=== PATIENT | female | born 1960 | race Caucasian/White ===

== ENCOUNTER 2022-08-04 20:46 | Inpatient (IN) | payer MEDICARE, OTHER ==
[2022-08-04] MEDS ORDERED: NITROGLYCERIN SL TABS 0.4 MG TAB SUBLINGUAL PRN ×2 (20:53→23:33)
[2022-08-04] MEDS ORDERED: MORPHINE SULFATE 4 MG/ML SYRINGE IV STA (21:00)
[2022-08-04] MEDS ORDERED: NOREPINEPHRINE 4 MG in SODIUM CHLORIDE 0.9% 250 ML IV SCH (21:00)
[2022-08-04] MEDS ORDERED: LORazepam 2 MG/ML INJ IV STA (21:00)
[2022-08-04 21:01] LABS: Glucose,Whole Blood 401 mg/dL (70-110)
[2022-08-04 21:06] VITALS: RESP 0
[2022-08-04 21:26] LABS: Potassium 4.2 mmol/L (3.5-5.1)
[2022-08-04 21:27] LABS: Calcium 8.2 mg/dL (8.4-10.2); HCT 38.9 % (34.0-46.0); HGB 12.1 gm/dL (11.4-16.0); Hypochromasia Slight; MCH 29.9 pg (25.0-35.0); MCHC 31.1 g/dL (31.0-37.0); MCV 96.3 fL (80.0-100.0); Magnesium 2.4 mg/dL (1.6-2.3); Mean Platelet Volume 8.8; Platelet Count 207 k/uL (150-450); RBC 4.04 m/uL (3.80-5.40); RDW 13.5 % (11.5-15.5); Total Bilirubin 0.2 mg/dL (0.2-1.3); Total Protein 5.3 g/dL (6.3-8.2); WBC 11.5 k/uL (3.8-10.6)
[2022-08-04 21:41] LABS: INR 0.9 (<1.2); Partial Thromboplastin Time 22.7 sec (22.0-30.0); Prothrombin Time 9.7 sec (9.0-12.0)
--- NOTE | 2022-08-04 21:42 | XR ---
EXAMINATION TYPE: XR chest 1V portable DATE OF EXAM: 08/04/2022 COMPARISON: NONE HISTORY: Respiratory failure TECHNIQUE: Single view FINDINGS: Heart is normal. Lungs are free of consolidation. There is no heart failure there are no hi lar masses. There are chest leads. There is endotracheal tube 9 mm from the juliann. There is nasogast kerwin tube in the stomach. IMPRESSION: No heart failure or pulmonary consolidation. There is 8mm density in the lateral right up per lobe that is likely scarring or granuloma.
--- NOTE | 2022-08-04 21:44 | XR ---
EXAMINATION TYPE: XR chest 1V portable DATE OF EXAM: 08/04/2022 COMPARISON: NONE HISTORY: Cardiac arrest TECHNIQUE: 2 views FINDINGS: There is nasogastric tube in the stomach there is an endotracheal tube that is approximatel y 4 cm from the juliann. Tip is not well seen. There is some mild interstitial infiltrate in the right lung. IMPRESSION: 1 right-sided pulmonary interstitial infiltrate. Tubing in good position. Normal heart si ze.
[2022-08-04 21:45] LABS: ABG Base Excess -13.8 mmol/L; ABG HCO3 17 mmol/L (21-25); ABG Oxygen Saturation 98.8 % (94-97); ABG PCO2 58 mmHg (35-45); ABG PO2 176 mmHg (83-108); ABG TCO2 18 mmol/L (19-24); Allen Test Performed? Yes
[2022-08-04 21:49] LABS: ABG PH 7.06 (7.35-7.45)
[2022-08-04] MEDS ORDERED: LIDOCAINE 1% INJ 10MG/ML (20 ML MDV) ONE (22:17)
[2022-08-04] MEDS ORDERED: VERAPAMIL 2.5 MG/ML 2 ML AMP ONE (22:17)
[2022-08-04] MEDS ORDERED: fentaNYL (PF) 50 MCG/ML 2 ML AMP ONE (22:28)
[2022-08-04] MEDS ORDERED: HEPARIN SODIUM 1,000 UN/ML (10ML VL) ONE (22:28)
[2022-08-04] MEDS ORDERED: ASPIRIN 325 MG TAB NG-TUBE ONE (22:30)
--- NOTE | 2022-08-04 22:30 | P.CRDCN ---
History of Present Illness Consult date: 08/04/22 History of present illness: History of Present Illness: The patient is a 62-year-old female who presented with a cardiac arrest. The history is obtained from the emergency room physician. Apparently the patient was not feeling well this afternoon complaining of neck pain, went to bed and apparently got up and collapse, CPR was initiated. She was in asystole and sub sequently had ventricular fibrillation and received cardioversion per EMS and was intubated on the scene. She went and ventricular fibrillation again in the emergency room and was shocked. Her EKG showed ST segment depression in the anterior precordial leads. Apparently the patient has not seen a physician for over 15 years. She does not take any medications. She smokes on a regular basis. In the emergency room she was intubated, unresponsive, her blood pressure is stable on no vasopressors. Medications: None Review of Systems: Could not be obtained Physical Examination: 62-year-old female intubated, unresponsive ,Blood pressure 120/70, Heart rate 90 Head: Normocephalic. Eyes: Sclerae nonicteric. Neck: Good carotid upstroke, no bruit, no jugular venous distention. Lungs: Clear to auscultation. Heart: Regular rate and rhythm, S1-S2, no S3, no rub. No murmur. Abdomen: Soft , positive bowel sounds no organomegaly. Extremities: No edema, intact distal pulses. Labs: PH 7.06, pO2 176, BUN 18, creatinine 1.06. Blood sugar 329. Hemoglobin 12.1. Troponin 0.149 EKG: EKG revealed ST segment depression in the anterior precordial leads, rule out posterior infarct Impression: 1. Cardiac arrest with ventricular fibrillation, full details not available status post CPR and cardioversion. Patient is intubated. 2. Probable posterior myocardial infarction 3. History of chronic tobacco use 4. Elevated blood sugar of unknown duration Plan: 1. Proceed with coronary angiography, the was not available, that was discussed at the emergency physician with her prior to him leaving 2. Prognosis is guarded 3. Depending on the results of her cardiac catheterization further recommendations will be made 4. Thank you for this consult we will follow with you Medications and Allergies Home Medications Medication Instructions Recorded Confirmed Type No Known Home Medications 08/04/22 08/04/22 History Allergies Allergy/AdvReac Type Severity Reaction Status Date / Time bee venom protein (honey bee) Allergy Unknown Verified 08/04/22 21:31 Physical Exam Vitals: Vital Signs Pulse Resp BP FiO2 08/04/22 21:25 100 08/04/22 21:23 100 08/04/22 20:50 62 0 L 76/65 Intake and Output 08/04/22 08/04/22 08/04/22 06:59 14:59 22:59 Other: Weight 89.947 kg Results 08/04/22 21:03 08/04/22 21:03 Cardiac Enzymes 08/04/22 08/04/22 Range/Units 21:03 21:03 AST 72 H (14-36) U/L Troponin I 0.149 H* (0.000-0.034) ng/mL Coagulation 08/04/22 Range/Units 21:03 PT 9.7 (9.0-12.0) sec APTT 22.7 (22.0-30.0) sec CBC 08/04/22 Range/Units 21:03 WBC 11.5 H (3.8-10.6) k/uL RBC 4.04 (3.80-5.40) m/uL Hgb 12.1 (11.4-16.0) gm/dL Hct 38.9 (34.0-46.0) % Plt Count 207 (150-450) k/uL Comprehensive Metabolic Panel 08/04/22 Range/Units 21:03 Sodium 140 (137-145) mmol/L Potassium 4.2 (3.5-5.1) mmol/L Chloride 111 H (98-107) mmol/L Carbon Dioxide 13 L (22-30) mmol/L BUN 18 H (7-17) mg/dL Creatinine 1.06 H (0.52-1.04) mg/dL Glucose 329 H (74-99) mg/dL Calcium 8.2 L (8.4-10.2) mg/dL AST 72 H (14-36) U/L ALT 63 H (4-34) U/L Alkaline Phosphatase 56 (38-126) U/L Total Protein 5.3 L (6.3-8.2) g/dL Albumin 3.0 L (3.5-5.0) g/dL Current Medications Generic Name Dose Route Start Last Admin Trade Name Freq PRN Reason Stop Dose Admin Norepinephrine Bitartrate 4 mg 254 mls @ 10.281 mls/hr 08/04/22 21:00 / Sodium Chloride IV .Q24H LESLEY Protocol 0.03 MCG/KG/MIN Nitroglycerin 0.4 mg 08/04/22 20:53 Nitroglycerin Sl Tabs 0.4 Mg Tab SUBLINGUAL Q5M PRN Chest Pain Intake and Output 08/04/22 08/04/22 08/04/22 06:59 14:59 22:59 Other: Weight 89.947 kg Patient Weight 08/05/22 06:59 Weight 89.947 kg 08/04/22 21:03 08/04/22 21:03
[2022-08-04] MEDS ORDERED: ASPIRIN 325 MG TAB ONE (22:32)
[2022-08-04] MEDS ORDERED: LIDOCAINE 1% INJ 10MG/ML (20 ML MDV) SQ ONE (22:33)
--- NOTE | 2022-08-04 22:33 | CT ---
EXAMINATION TYPE: CT brain maryine wo con DATE OF EXAM: 08/04/2022 COMPARISON: None HISTORY: CVA, unresponsive CT DLP: 1719.1 mGycm Automated exposure control for dose reduction was used. Images obtained of the brain and cervical spine without contrast. There is effacement of the sulci. There is no mass effect or midline shift. No sign of intracranial h emorrhage. There is diffuse soft tissue air at the base of the neck and upper chest. The cervical vertebra have normal alignment. There is endotracheal tube and gastric tube. The prevertebral soft tissues are inta ct. There is degenerative disc space narrowing from C4 to C7 with spurring of the endplates. There is mild cervical facet arthropathy. IMPRESSION: There is effacement of the sulci in the brain suggestive of cerebral edema and increased intracranial pressure. No hemorrhage. Spondylotic changes in the cervical spine. No fracture. Extensive soft tissue air throughout the neck and upper chest.
[2022-08-04 22:34] LABS: Band Neutrophils % 2 %; Eosinophils # (M) 0.35 k/uL (0-0.7); Lymphocytes # (M) 8.17 k/uL (1.0-4.8); Monocytes # (M) 0.23 k/uL (0-1.0); Neutrophils % (M) 22 %; Nucleated Red Blood Cells 0 /100 WBC (0-0); Total Cells Counted 100
[2022-08-04] MEDS ORDERED: VERAPAMIL SYRINGE (5 MG/10 ML) INTRAARTER ONE (22:35)
[2022-08-04] MEDS ORDERED: HEPARIN SODIUM 1,000 UN/ML (10ML VL) IV ONE ×2 (22:35→23:14)
--- NOTE | 2022-08-04 22:37 | CT ---
EXAMINATION TYPE: CT chest angio for PE DATE OF EXAM: 08/04/2022 COMPARISON: None HISTORY: CVA, unresponsive CT DLP: 627 mGycm Automated exposure control for dose reduction was used. CONTRAST: Performed with IV Contrast, patient injected with 65 cc mL of Isovue 300. Images obtained from the thoracic inlet to the diaphragm with the IV contrast. There are Three-D post processed images. There is extensive soft tissue air around the chest and neck. There is pneumomediastinum. No pneumoth orax. There is some patchy atelectasis in the mid and upper lung hall. There is some consolidation and atelectasis left lower lobe posteriorly. There is pneumopericardium. No evidence of filling defect in the pulmonary arteries. There is gastric tube in the stomach. There is endotracheal tube. The upper abdominal soft tissues are intact. The thoracic spine is intact. No compression fracture. Sternum is intact. IMPRESSION: No evidence of pulmonary embolism. Bilateral pulmonary infiltrates and atelectasis as above. No pneum othorax. Pneumopericardium and pneumomediastinum. Extensive soft tissue air.
[2022-08-04] MEDS ORDERED: PRASUGREL 10 MG TAB ONE (22:40)
[2022-08-04] MEDS ORDERED: PRASUGREL 10 MG TAB NG-TUBE ONE (22:43)
[2022-08-04] MEDS ORDERED: SODIUM CHLORIDE 0.9% 500 ML 500 ML IV ONE (22:53)
[2022-08-04] MEDS ORDERED: EPINEPHrine (PF) 1 MG/ML AMP IV ONE ×2 (22:55→22:58)
[2022-08-04] MEDS ORDERED: EPINEPHrine 10 ML SYRINGE (0.1 MG/ML) ONE ×2 (22:58→23:40)
[2022-08-04] MEDS ORDERED: ATROPINE SULFATE 0.1 MG/ML 10ML SYRINGE ONE (22:58)
[2022-08-04] MEDS ORDERED: ATROPINE SULFATE 0.1 MG/ML 10ML SYRINGE IV ONE (22:59)
[2022-08-04] MEDS ORDERED: SODIUM CHLORIDE 0.9% 250 ML IV ONE (23:00)
[2022-08-04] MEDS ORDERED: LIDOCAINE 2% SYG (PF) 100 MG/5 ML IV ONE (23:00)
[2022-08-04] MEDS ORDERED: DEXTROSE 5% IN WATER 100 ML BAG IV ONE (23:00)
[2022-08-04] MEDS ORDERED: AMIODARONE 50 MG/ML 3 ML VIAL IV ONE (23:04)
--- NOTE | 2022-08-04 23:08 | ED ---
CPR HPI - General Chief Complaint: Cardiac Arrest/CPR Stated Complaint: Cardiac Arrest Time Seen by Provider: 08/04/22 20:52 Source: family (), EMS Mode of arrival: EMS Limitations: altered mental status - History of Present Illness Initial Comments: 's patient is a 62-year-old woman brought by ambulance after she had become unresponsive at home. Patient not able to provide any history due to condition. History from the patient's obtained after he arrived revealed that the patient had been complaining of pain to the anterior neck going on since late afternoon and early evening. The patient did not want to go to the hospital to be evaluated. They went to bed around 7. Patient's woke up sometime later, and here heard his from the adjoining room give what sounded like a loud gasping. He went to check and found that she had stopped breathing. He called EMS and first responders reportedly arrived 4 minutes later. ACLS protocol was started. EMS told me that the initial rhythm was asystole. They intubated patient's started IV chest compressions, transported patient here. She had at some point gone into ventricular fibrillation and had a total of 7 defibrillation attempts. Complaint: collapsed during rest -: minute(s) Place: home Bystander CPR Performed: No AED Applied by Bystander/Supervisor Buffing And Pasting: Yes Shock Advised: No Number of Shocks Delivered: >3 Initial Findings in the Field: unresponsive, systole ROSC in the Field: No Associated Injuries: No Treatments Prior to Arrival: intubation, chest compressions, defibrillated shocks # (7), other (See the code sheet for the EMS meds.) - Related Data Home Medications Medication Instructions Recorded Confirmed No Known Home Medications 08/04/22 08/04/22 Allergies Allergy/AdvReac Type Severity Reaction Status Date / Time bee venom protein (honey bee) Allergy Unknown Verified 08/04/22 21:31 Review of Systems ROS Statement: Those systems with pertinent positive or pertinent negative responses have been documented in the HPI. ROS Other: All systems not noted in ROS Statement are negative. Limitations: ROS unobtainable due to patients medical condition General Exam Limitations: physical limitation General appearance: other (Patient unresponsive) Head exam: Present: atraumatic, normocephalic Eye exam: Present: other (Pupils approximately 7 mm and unreactive). Absent: PERRL, EOMI, scleral icterus, conjunctival injection ENT exam: Present: other (There is an endotracheal tube with bite-block) Neck exam: Present: normal inspection. Absent: tenderness Respiratory exam: Present: rhonchi, other (There is no spontaneous inspiratory effort. Auscultation with bagging does reveal decreased breath sounds on the l eft there are diffuse rhonchi) Cardiovascular Exam: Present: other (No palpable PMI. No palpable pulses. No cardiac sounds). Absent: normal heart sounds GI/Abdominal exam: Present: soft. Absent: mass, pulsatile mass Extremities exam: Present: normal inspection. Absent: pedal edema Back exam: Present: normal inspection. Absent: vertebral tenderness Neurological exam: Present: other (Patient is unresponsive, GCS is 3. No cranial or deep tendon reflexes) Skin exam: Present: warm, dry, intact, pallor. Absent: rash Course Vital Signs 08/04/22 08/04/22 20:50 21:23 Pulse Rate 62 Respiratory 0 L Rate Blood Pressure 76/65 Fraction of 100 Inspired Oxygen (FIO2) Procedures - [place] Protocol (Time Out) Patient Identification (2 identifiers required): Chart, Arm Band, Birthdate Patient/Legal Pathology Specialist has Confirmed: Identity, Procedure, Consent Site Marked: Not Applicable Medical Decision Making - Medical Decision Making Patient is 62-year-old woman who became unresponsive at home. Patient's phoned EMS and first responders arrived at approximately 4 minutes. ACLS protocol instituted. The patient initially asystolic but after intubation and some CPR there was ventricular fibrillation and the patient received a number of rounds of medications and shock. ACLS continued and the patient did have ROSC here in the emergency department after one additional defibrillation for ventricular fibrillation. Postresuscitation ECG not revealing a definite etiology. There does appear to be postresuscitation injury with ST elevations in aVR and diffuse ST depressions. We did attempt to reach cardiology through the perfect serve and then through a number of the on-call pagers. After review of the ECG, the patient is taken to the [facility]. Note that the chest x-ray after resuscitation showed the ET tube at the right mainstem bronchus. This was repositioned and repeat x-ray shows a better placement. Prior to the patient going to the [facility] there did appear to be some swelling to the anterior neck and physical exam this does feel like septic tenderness emphysema. The patient sent for computed tomography scan which does reveal pneumomediastinum and subcutaneous emphysema as interpreted by myself. CT brain is obtained which I interpreted as not showing any bony trauma. No intracranial hemorrhage. There is some soft tissue air noted. There does appear to be some effacement of the sulci however roberts-white differentiation is still present Was pt. sent in by a medical professional or institution (NESTOR Flores, NUTRITION PROFESSOR, urgent care, hospital, or fpc...) When possible be specific @ -[No] Did you speak to anyone other than the patient for history (EMS, parent, family, police, friend...)? What history was obtained from this source @ -[EMS. Patient Did you review nursing and triage notes (agree or disagree)? Why? @ -[I reviewed and agree with nursing and triage notes] Were old charts reviewed (outside hosp., previous admission, EMS record, old EKG, old radiological studies, urgent care reports/EKG's, fpc records)? Report findings @ -[ Differential Diagnosis (chest pain, altered mental status, abdominal pain women, abdominal pain men, vaginal bleeding, weakness, fever, dyspnea, syncope, headache, dizziness, GI bleed, back pain, seizure, CVA, palpatations, mental health, musculoskeletal)? @ -[Differential Chest Pain: Stable Angina, Unstable Angina, STEMI, NSTEMI Aortic Dissection, Pneumothorax, pulmonary embolism this is not meant to be an all-inclusive list. EKG interpreted by me (3pts min.). @ -[As above] X-rays interpreted by me (1pt min.). @ -[As above CT interpreted by me (1pt min.). @ -[As above U/S interpreted by me (1pt. min.). @ -[None done] What testing was considered but not performed or refused? (CT, X-rays, U/S, labs)? Why? @ -[None] What meds were considered but not given or refused? Why? @ -[None] Did you discuss the management of the patient with other professionals (professionals i.e. NESTOR Flores, NUTRITION PROFESSOR, lab, RT, psych nurse, social scientist, tumbling and rolling supervisor, teacher, correctional officer captain, field nurse case manager)? Give summary @ -[Case is discussed with cardiology plastics seasoner operator, and patient was taken to the [facility] Was smoking cessation discussed for >3mins.? @ -[No] Was critical care preformed (if so, how long)? @ -[Yes 40 minutes Were there social determinants of health that impacted care today? How? (Homelessness, low income, unemployed, alcoholism, drug addiction, transportation, low edu. Level, literacy, decrease access to med. care, care home, rehab)? @ -[No] Was there de-escalation of care discussed even if they declined (Discuss DNR or withdrawal of care, Hospice)? DNR status @ -[No] What co-morbidities impacted this encounter? (DM, HTN, Smoking, COPD, CAD, Cancer, CVA, ARF, Chemo, Hep., AIDS, mental health diagnosis, sleep apnea, morbid obesity)? @ -[None] Was patient admitted / discharged? Hospital course, mention meds given and route , prescriptions, significant lab abnormalities, going to OR and other pertinent info. @ -[Patient admitted Undiagnosed new problem with uncertain prognosis? @ -[No] Drug Therapy requiring intensive monitoring for toxicity (Heparin, Nitro, Insulin, Cardizem)? @ -[No] Were any procedures done? @ -[No] Diagnosis/symptom? @ -[Acute cardiopulmonary arrest with ROSC. 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 @ -[Acute Uncomplicated (without systemic symptoms) or Complicated (systemic symptoms)? @ -[Complicated Side effects of treatment? @ -[No] Exacerbation, Progression, or Severe Exacerbation? @ -[No] Poses a threat to life or bodily function? How? (Chest pain, USA, PR, pneumonia, PE, COPD, DKA, ARF, appy, cholecystitis, CVA, Diverticulitis, Homicidal, Suicidal, threat to staff... and all critical care pts) @ -[Yes] - Lab Data Result diagrams: 08/04/22 21:03 08/04/22 21:03 Lab Results 08/04/22 08/04/22 08/04/22 Range/Units 21:00 21:03 21:03 WBC 11.5 H (3.8-10.6) k/uL RBC 4.04 (3.80-5.40) m/uL Hgb 12.1 (11.4-16.0) gm/dL Hct 38.9 (34.0-46.0) % MCV 96.3 (80.0-100.0) fL MCH 29.9 (25.0-35.0) pg MCHC 31.1 (31.0-37.0) g/dL RDW 13.5 (11.5-15.5) % Plt Count 207 (150-450) k/uL MPV 8.8 Neutrophils % (Manual) 22 % Band Neuts % (Manual) 2 % Lymphocytes % (Manual) 71 % Monocytes % (Manual) 2 % Eosinophils % (Manual) 3 % Neutrophils # (Manual) 2.70 (1.3-7.7) k/uL Lymphocytes # (Manual) 8.17 H (1.0-4.8) k/uL Monocytes # (Manual) 0.23 (0-1.0) k/uL Eosinophils # (Manual) 0.35 (0-0.7) k/uL Nucleated RBCs 0 (0-0) /100 WBC Manual Slide Review Performed Hypochromasia Slight PT 9.7 (9.0-12.0) sec INR 0.9 (<1.2) APTT 22.7 (22.0-30.0) sec Sample Site ABG pH (7.35-7.45) ABG pCO2 (35-45) mmHg ABG pO2 (83-108) mmHg ABG HCO3 (21-25) mmol/L ABG Total CO2 (19-24) mmol/L ABG O2 Saturation (94-97) % ABG Base Excess mmol/L Tyler Test FiO2 % Sodium (137-145) mmol/L Potassium (3.5-5.1) mmol/L Chloride (98-107) mmol/L Carbon Dioxide (22-30) mmol/L Anion Gap mmol/L BUN (7-17) mg/dL Creatinine (0.52-1.04) mg/dL Est GFR (CKD-EPI)AfAm (>60 ml/min/1.73 sqM) Est GFR (CKD-EPI)NonAf (>60 ml/min/1.73 sqM) Glucose (74-99) mg/dL POC Glucose (mg/dL) 401 H (70-110) mg/dL POC Glu Log Chain Feeder ID Kallek, Sindy Calcium (8.4-10.2) mg/dL Magnesium (1.6-2.3) mg/dL Total Bilirubin (0.2-1.3) mg/dL AST (14-36) U/L ALT (4-34) U/L Alkaline Phosphatase (38-126) U/L Troponin I (0.000-0.034) ng/mL Total Protein (6.3-8.2) g/dL Albumin (3.5-5.0) g/dL 08/04/22 08/04/22 08/04/22 Range/Units 21:03 21:03 21:37 WBC (3.8-10.6) k/uL RBC (3.80-5.40) m/uL Hgb (11.4-16.0) gm/dL Hct (34.0-46.0) % MCV (80.0-100.0) fL MCH (25.0-35.0) pg MCHC (31.0-37.0) g/dL RDW (11.5-15.5) % Plt Count (150-450) k/uL MPV Neutrophils % (Manual) % Band Neuts % (Manual) % Lymphocytes % (Manual) % Monocytes % (Manual) % Eosinophils % (Manual) % Neutrophils # (Manual) (1.3-7.7) k/uL Lymphocytes # (Manual) (1.0-4.8) k/uL Monocytes # (Manual) (0-1.0) k/uL Eosinophils # (Manual) (0-0.7) k/uL Nucleated RBCs (0-0) /100 WBC Manual Slide Review Hypochromasia PT (9.0-12.0) sec INR (<1.2) APTT (22.0-30.0) sec Sample Site right radial ABG pH 7.06 L* (7.35-7.45) ABG pCO2 58 H (35-45) mmHg ABG pO2 176 H (83-108) mmHg ABG HCO3 17 L (21-25) mmol/L ABG Total CO2 18 L (19-24) mmol/L ABG O2 Saturation 98.8 H (94-97) % ABG Base Excess -13.8 mmol/L Tyler Test Yes FiO2 100 % Sodium 140 (137-145) mmol/L Potassium 4.2 (3.5-5.1) mmol/L Chloride 111 H (98-107) mmol/L Carbon Dioxide 13 L (22-30) mmol/L Anion Gap 16 mmol/L BUN 18 H (7-17) mg/dL Creatinine 1.06 H (0.52-1.04) mg/dL Est GFR (CKD-EPI)AfAm 65 (>60 ml/min/1.73 sqM) Est GFR (CKD-EPI)NonAf 56 (>60 ml/min/1.73 sqM) Glucose 329 H (74-99) mg/dL POC Glucose (mg/dL) (70-110) mg/dL POC Glu Log Chain Feeder ID Calcium 8.2 L (8.4-10.2) mg/dL Magnesium 2.4 H (1.6-2.3) mg/dL Total Bilirubin 0.2 (0.2-1.3) mg/dL AST 72 H (14-36) U/L ALT 63 H (4-34) U/L Alkaline Phosphatase 56 (38-126) U/L Troponin I 0.149 H* (0.000-0.034) ng/mL Total Protein 5.3 L (6.3-8.2) g/dL Albumin 3.0 L (3.5-5.0) g/dL Disposition Clinical Impression: Acute myocardial infarction, Acute respiratory failure, Cardiac arrest Disposition: ADMITTED IP TO THIS HOSP Condition: Critical Is patient prescribed a controlled substance at d/c from ED?: No
[2022-08-04] MEDS ORDERED: NOREPINEPHRINE 4 MG in SODIUM CHLORIDE 0.9% 250 ML IV ONE (23:14)
[2022-08-04 23:16] LABS: ABG Base Excess -13.2 mmol/L; ABG HCO3 17 mmol/L (21-25); ABG Oxygen Saturation 97.3 % (94-97); ABG PCO2 57 mmHg (35-45); ABG PO2 117 mmHg (83-108); ABG TCO2 19 mmol/L (19-24)
[2022-08-04 23:19] LABS: ABG PH 7.08 (7.35-7.45); Allen Test Performed? no
[2022-08-04] MEDS ORDERED: ATROPINE SULFATE 0.1 MG/ML 10ML SYRINGE IV PRN (23:33)
[2022-08-04] MEDS ORDERED: RX INFO: IV CONTRAST WAS GIVEN 1 EACH MISC MISCELLANE PRN (23:33)
[2022-08-04] MEDS ORDERED: MAG HYDROX/AL HYDROX/SIMETH 30 ML CUP PO PRN (23:33)
[2022-08-04] MEDS ORDERED: ZOLPIDEM 5 MG TAB PO PRN (23:33)
[2022-08-04] MEDS ORDERED: propofoL 100 ML IV ONE (23:34)
[2022-08-04] MEDS ORDERED: CALCIUM CHLORIDE 100 MG/ML 10 ML SYRINGE ONE (23:40)
[2022-08-04] MEDS ORDERED: LIDOCAINE 2% SYG (PF) 100 MG/5 ML ONE (23:40)
[2022-08-04] MEDS ORDERED: SODIUM BICARB 8.4% 50 ML SYR (1 MEQ/ML) ONE (23:40)
[2022-08-04] MEDS ORDERED: AMIODARONE 360 MG in DEXTROSE 5% IN WATER 200 ML IV ONE ×2 (23:45)
[2022-08-04] MEDS ORDERED: SODIUM CHLORIDE 0.9% 1,000 ML in EMPTY BAG 1 BAG IV SCH (23:45)
--- NOTE | 2022-08-04 23:47 | P.CARDCATH ---
Date of Procedure: 08/04/22 Description of Procedure: Cardiac Catheterization: The patient is a 62-year-old female who has not seen a physician for over 10 years presented with cardiac arrest and recurrent ventricular fibrillation, her EKG showed ST segment depression in the anterior leads. The patient was intubated and unresponsive. The family was not available at the start of the procedure. Recommendations were made regarding cardiac catheterization, Procedure Description: Patient was brought to lab support tech, she is intubated, unresponsive. Using Xylocaine Anesthesia and Seldinger technique, a 6-Burmese sheath was introduced in the right radial artery . Subsequently, selective coronary angiography was performed using a 5-Burmese 3.5 bend Catherine catheter. Multiple views of the coronary artery including hemiaxial views were obtained. The 5-Burmese pigtail catheter was used to cross the aortic valve and LVEDP was calculated. PCI: Attempt to cannulate the right coronary ostium using a 6-Burmese 0.75 AL guiding catheter were unsuccessful, a 6-Burmese 4 band right Catherine catheter was used to cannulate the right coronary ostium, subsequently a 0.014 BMW J-wire was positioned distally and a 2.25 x 12 mm Treck balloon was advanced into inflation at 8 alin were done. The patient had ventricular fibrillation requiring CPR, cardioversion 4 and epinephrine to restore blood pressure. Subsequently a 2.5 x 23 mm Xience shannan point was deployed at 16 alin. After withdrawing the wire images were obtained and revealed stable successful stenting. Following that, catheter and sheath were removed. Hemostasis was obtained with deployment of TR band . There was no immediate complication. Patient was returned to room in stable condition. She was in atrial fibrillation with controlled ventricular response and a blood pressure around 110 mmHg. She was started on amiodarone drip. Of note, the patient received a total of 8000 units of intravenous heparin as well as intra-arterial verapamil. She received an oral loading dose of Effient, her ACT was monitored. Findings: Left main: This is a short sized vessel, bifurcating into LAD and left circumflex, left main has no high-grade stenosis LAD: This is a large size vessel, reaching to the apex, the LAD ends branches have no evidence of high-grade stenosis Left circumflex: This is a large nondominant vessel giving rise to a large obtuse marginal branch that has no evidence of high-grade stenosis RCA: This is a dominant vessel that has a high bifurcation the right coronary artery after the first branch is totally occluded with no antegrade flow Left Ventriculogram: Not performed Hemodynamics: There was no gradient across the aortic valve, LVEDP was 20-25 mmH g Conclusion: 1. Acutely occluded mid RCA 2. No obstructive disease in the LAD and left circumflex 3. Successful stenting of the mid RCA with reduction of stenosis from 100% to less than 5% 4. Recurrent ventricle fibrillation requiring cardioversion and CPR Recommendations: The patient will continue on aspirin and Effient for 1 year without any interruption. The prognosis remains guarded in regard to her hemodynamic instability and possible neurological deficit. The findings and the recommendations were discussed with the the family and they were in full understanding and agreement. Duration of sedation is 42 minutes.
[2022-08-04 23:56] VITALS: PULSE 82; TEMP 97.6
[2022-08-05 00:42] VITALS: BP 97/66
--- NOTE | 2022-08-05 01:16 | P.CNPUL ---
History of Present Illness Consult date: 08/05/22 Requesting physician: Donnell Chambers Reason for consult: other (ICU management) Chief complaint: [id number] cardiac arrest History of present illness: I'm seeing this patient in new consultation for ICU management today 08/05/2022. This is a 62-year-old white female medical history largely unknown due to her being endotracheally intubated. Apparently, patient has not been to the doctors in over 15 years. Patient was reportedly unresponsive at home after complaining of some anterior neck pain earlier that evening. Patient initially did not want to go to the hospital to be evaluated. was awakened because he heard some gasping in the adjoining room. He went to check on her and found that she stopped breathing. EMS was called and arrived approximately 4 minutes later. EMS reports that the initial presenting rhythm was asystole. ACLS protocol was initiated. There is an estimated 20 minute downtime before ROSC was achieved. Patient was intubated in the field. Patient was transferred to [facility]. On arrival a CT of the brain and C-spine without contrast showed the effacement of the sulci, suggestive of cerebral edema and increasing intercranial pressure without hemorrhage. Probably related to anoxic brain injury. A chest CTA showed no evidence of pulmonary embolism with bilateral pulmonary infiltrates and atelectasis. No pneumothorax, there was a pneumopericardium and pneumomediastinum. ECG showed ST segment depression in the anterior precordial leads. Patient was ultimately taken to the [facility] after brief evaluation. Patient did receive a 2.5 x 2.3 Xience stent to the RCA, and did experience a brief episode of V. fib cardiac arrest in the roving tester laboratory. Patient was successfully resuscitated after an approximate 2 minute downtime. I saw this patient for the first time after transfer to the intensive care unit. Patient was mechanically ventilated with settings AC, respiratory rate 16, tidal volume 500, FiO2 100%, PEEP 5. ABGs showed a pH of 7.08, pCO2 of 57, and pO2 of 117. Respiratory rate was subsequently increased to 26. Norepinephrine was infusing at 0.03 mics per kg per minute. While hooking the patient up to the bedside monitor, the patient was found to be in V. fib. A resuscitation attempt was made per ACLS protocol. [facility] and Dr. Sharma both responded to the CODE BLUE. Patient defibrillated a total of 6 times. Patient was given a total of 5 A of epinephrine, a second 150 mg amiodarone bolus, 1 amp of l idocaine, and 3 A of sodium bicarbonate. Unfortunately, we were not able to resuscitate this patient after an extended downtime of 25 minutes. Review of Systems Unable to obtain a review of systems due to the patient being endotracheally intubated Past Medical History Past Medical History: Unable to Obtain Past Surgical History: Unable to Obtain Past Anesthesia/Blood Transfusion Reactions: Unable to Obtain Past Psychological History: Unable to Obtain Smoking Status: Unknown if ever smoked Past Alcohol Use History: Unable to Obtain Past Drug Use History: Unable to Obtain Medications and Allergies Home Medications Medication Instructions Recorded Confirmed Type No Known Home Medications 08/04/22 08/04/22 History Allergies Allergy/AdvReac Type Severity Reaction Status Date / Time bee venom protein (honey bee) Allergy Unknown Verified 08/04/22 21:31 Physical Exam Vitals: Vital Signs Temp Pulse Resp BP Pulse Ox FiO2 08/04/22 23:53 100 08/04/22 22:16 97.6 F 82 100/60 97 08/04/22 21:23 100 08/04/22 20:50 62 0 L 76/65 Intake and Output 08/04/22 08/04/22 08/05/22 14:59 22:59 06:59 Intake Total 500 60 Balance 500 60 Intake: IV 500 60 Other: Weight 89.947 kg GENERAL EXAM: Unresponsive 62-year-old white female endotracheally intubated to the mechanical ventilator HEAD: Normocephalic and atraumatic EYES: Dilated pupils are weakly reactive to light NECK: No masses, no JVD. CHEST: No chest wall deformity. There is some anterior chest wall subcutaneous emphysema LUNGS: Diffuse rhonchi and crackles throughout. Raul hemoptysis coming from the ET tube. CVS: Patient currently in V. fib arrest. ABDOMEN: No hepatosplenomegaly, active bowel sounds, no guarding or rigidity. CENTRAL NERVOUS SYSTEM: No focal deficits, tone is normal in all 4 extremities. EXTREMITIES: No obvious deformities Results - Laboratory Findings CBC and BMP: 08/04/22 21:03 08/04/22 21:03 ABG ABG pH 7.08 (7.35-7.45) L* 08/04/22 23:14 ABG pCO2 57 mmHg (35-45) H 08/04/22 23:14 ABG pO2 117 mmHg (83-108) H 08/04/22 23:14 ABG O2 Saturation 97.3 % (94-97) H 08/04/22 23:14 PT/INR, D-dimer PT 9.7 sec (9.0-12.0) 08/04/22 21:03 INR 0.9 (<1.2) 08/04/22 21:03 Abnormal lab findings: Abnormal Labs 08/04/22 08/04/22 08/04/22 21:00 21:03 21:03 WBC 11.5 H Lymphocytes # (Manual) 8.17 H ABG pH ABG pCO2 ABG pO2 ABG HCO3 ABG Total CO2 ABG O2 Saturation Chloride 111 H Carbon Dioxide 13 L BUN 18 H Creatinine 1.06 H Glucose 329 H POC Glucose (mg/dL) 401 H Calcium 8.2 L Magnesium 2.4 H AST 72 H ALT 63 H Troponin I Total Protein 5.3 L Albumin 3.0 L 08/04/22 08/04/22 08/04/22 21:03 21:37 23:14 WBC Lymphocytes # (Manual) ABG pH 7.06 L* 7.08 L* ABG pCO2 58 H 57 H ABG pO2 176 H 117 H ABG HCO3 17 L 17 L ABG Total CO2 18 L ABG O2 Saturation 98.8 H 97.3 H Chloride Carbon Dioxide BUN Creatinine Glucose POC Glucose (mg/dL) Calcium Magnesium AST ALT Troponin I 0.149 H* Total Protein Albumin - Diagnostic Findings Chest x-ray: image reviewed CT scan - chest: image reviewed Assessment and Plan Assessment: Cardiac arrest with ventricular fibrillation, post multiple resuscitation attempts secondary to an acute posterior myocardial infarction. Patient didn't go to the [facility], and is post successful stent of the RCA with a 2.5 x 2.3 Xience stent. Unfortunately, patient was back in V. fib on arrival to the intensive care unit. An ultimately unsuccessful resuscitation attempt was made per ACLS protocol. Acute hypoxic and hypercapnic respiratory failure secondary to above, requiring mechanical ventilation Acute pneumomediastinum and pneumopericardium related to CPR demonstrated on chest CTA on arrival. No evidence of pneumothorax. Anoxic brain injury related to prolonged downtime. Patient at 0007 I have personally seen and examined the patient, performed the documentation and the assessment and plan as written. Number of minutes spent on the visit:30 Time with Patient: Greater than 30
--- NOTE | 2022-08-05 04:45 | P.EN ---
CODE BLUE note Activated at 2342. Arrived at the scene shortly after. Reviewed the chart and discussed the case with the RN. The patient is a 62-year-old female who had not seen a physician for several years had become unresponsive at home. The patient had reportedly been complaining of anterior neck pain over the past day. Later that night, the woke up finding the patient unresponsive, and activated EMS. The patient was noted to be in asystole upon EMS arrival. She also was noted to be in V. fib arrest and received multiple defibrillation attempts (total of 7 as per ED documentation). Upon arrival at the emergency room, the patient was rushed to the [facility] for an ST elevation RI. She was noted to have an acutely occluded mid RCA with a stent placed. She denied ever experienced a V. fib cardiac arrest in the [facility] although was resuscitated. She was transferred to the medical ICU where she again was noted to be in V. fib arrest upon arrival. CODE BLUE was activated. Upon my arrival, the patient had been defibrillated once and had received 1 ampule of epinephrine and 150 mg amiodarone bolus. ACLS protocol was continued and the patient was given epinephrine IV push 5, lidocaine 1, sodium bicarbonate 2, and calcium chloride 1. The patient was noted to be in V-Fib and was defibrilated x 5. The cattle tester was also at the bedside during the code and the medical ICU, with whom the case was discussed in detail. CPR was halted at 0003 and the patient was pronounced. The patient's was notified by the feature writer and by the cattle tester. Please refer to the code sheet for further details. Primary team and the intensivists were notified by the RN. Total time spent providing critical care for this patient: 45 minutes
[2022-08-05] MEDS ORDERED: AMIODARONE 450 MG in DEXTROSE 5% IN WATER 250 ML IV SCH ×2 (05:45)
[2022-08-05] MEDS ORDERED: METOPROLOL TARTRATE 25 MG TAB PO SCH (09:00)
[2022-08-05] MEDS ORDERED: ASPIRIN 81 MG PO SCH (09:00)
[2022-08-05] MEDS ORDERED: PRASUGREL 10 MG TAB PO SCH (09:00)
[2022-08-05] MEDS ORDERED: CHLORHEXIDINE GLUCONATE 15 ML CUP MUCOUS MEM SCH (09:00)
[2022-08-05] MEDS ORDERED: ATORVASTATIN 80 MG TAB PO SCH (21:00)
--- NOTE | 2022-08-05 21:58 | P.HPIM ---
History of Present Illness H&P Date: 08/05/22 This is a 62 year old female who was admitted to the hospital brought in by EMS after being found unresponsive. Patients reports patient complaining of anterior neck pain earlier that evening. Patient was found later in the evening by her unresponsive and called EMS. EMS arrived about 4 minutes later and began ACLS protocol and began CPR, patient was in asystole when EMS arrived. The history is taken from the medical record as the patient was not evaluated by the admitting team prior to expiring. Patient presented to the hospital in the evening on 08/04/2022 and was intubated by EMS prior to arrival. Patient had gone into ventricular fibrillation and was defibrillated 7 times prior to arrival. Initial chest xray shows no heart failure or pulmonary consolidation. There is an 8mm density in the lateral right upper lobe likely scarring or granuloma. Follow up xray reveals NG tube in place and 1 right sided pulmonary interstitial infiltrate. CT brain Cspine shows effacement of the sulci in the brain suggestive of cerebral edema and increased intracranial pressure. No hemor rhage. Spondylytic changes in the cervical spine. No fracture. Extensive soft tissue air throughout the neck and upper chest. Chest CTA reveals no evidence of pulmonary embolism, bilateral pulmonary infiltrates and atelectasis. No pneumothorax. There is pneumomediastinum and pneumopericardium. There is troponin elevation at 0.149. LFT's mildly elevated. Creatinine 1.06. Blood glucose of 401. Patient was taken for cardiac catheterization and there was an acutely occluded mid RCA. This was successfully stented, patient required CPR and cardioversion x4 and epinephrine during procedure. Patient was brought to the ICU post procedure intubated with 100% FiO2 and norepinephrine was infusing. Patient was noted to be in ventricular fibrillation and zay blue was called. AC LS protocol started. [facility] had responded to the code blue. There was a total down time of 25 minutes, patient was unable to be resuscitated. Patient on 08/05/22 at 0007. Again patient was not evaluated by admitting team this history is taken from the medical record. Unable to obtain review of systems Did not perform physical examination as patient was not evaluated. Brought in to the hospital in evening around 2049 on 08/04/2022 and on 08/05/22 0007 in the intensive care unit. Assessment Cardiac arrest and recurrent ventricular fibrillation Acute posterior myocardial infarction status post PCI to the mid RCA Acute hypoxic respiratory failure secondary to above requiring intubation and mechanical ventilation Pneumomediastinum and pneumopericardium attributed to CPR CTA showing cerebral edema and increased intracranial pressure possibly anoxic brain injury from extended down time Acute kidney injury Elevated LFTs Patient had not been to see a doctor in over 10 years Unknown medical history The impression has been dictated by Veronica Badillo Nurse Practitioner as directed. Dr. Wu MD I have performed a history of this patient, discussed the same with the dictator, and agree with the dictators assessment and plan as written, documented as a scribe. Patient was not evaluated by admitting team. Past Medical History Past Medical History: Unable to Obtain Past Surgical History: Unable to Obtain Past Anesthesia/Blood Transfusion Reactions: Unable to Obtain Past Psychological History: Unable to Obtain Smoking Status: Unknown if ever smoked Past Alcohol Use History: Unable to Obtain Past Drug Use History: Unable to Obtain Medications and Allergies Home Medications Medication Instructions Recorded Confirmed Type No Known Home Medications 08/04/22 08/04/22 History Allergies Allergy/AdvReac Type Severity Reaction Status Date / Time bee venom protein (honey bee) Allergy Unknown Verified 08/04/22 21:31 Physical Exam Vitals: Vital Signs Temp Pulse BP Pulse Ox FiO2 08/05/22 00:00 97/66 08/04/22 23:53 100 08/04/22 22:16 97.6 F 82 100/60 97 Intake and Output 08/05/22 08/05/22 08/05/22 06:59 14:59 22:59 Intake Total 60 Balance 60 Intake: IV 60 Results CBC & Chem 7: 08/04/22 21:03 08/04/22 21:03 Labs: Abnormal Lab Results - Last 24 Hours (Table) 08/04/22 08/04/22 08/04/22 Range/Units 21:03 21:03 21:37 WBC 11.5 H (3.8-10.6) k/uL Lymphocytes # (Manual) 8.17 H (1.0-4.8) k/uL ABG pH 7.06 L* (7.35-7.45) ABG pCO2 58 H (35-45) mmHg ABG pO2 176 H (83-108) mmHg ABG HCO3 17 L (21-25) mmol/L ABG Total CO2 18 L (19-24) mmol/L ABG O2 Saturation 98.8 H (94-97) % Troponin I 0.149 H* (0.000-0.034) ng/mL 08/04/22 Range/Units 23:14 WBC (3.8-10.6) k/uL Lymphocytes # (Manual) (1.0-4.8) k/uL ABG pH 7.08 L* (7.35-7.45) ABG pCO2 57 H (35-45) mmHg ABG pO2 117 H (83-108) mmHg ABG HCO3 17 L (21-25) mmol/L ABG Total CO2 (19-24) mmol/L ABG O2 Saturation 97.3 H (94-97) % Troponin I (0.000-0.034) ng/mL
--- NOTE | 2022-08-05 22:03 | P.DS ---
Providers Date of admission: 08/04/22 22:40 Attending physician: Elin Glover Consults: 08/04/22 22:33 Consult Physician Urgent Consulting Provider: Nadia Woodall Consult Reason/Comments: unresponsive Do you want consulting provider notified?: Yes 08/04/22 22:34 Consult Physician Routine Consulting Provider: Richar Whalen Consult Reason/Comments: unresponsive Do you want consulting provider notified?: Yes Consult Physician Urgent Consulting Provider: Roxanna Sharma Consult Reason/Comments: Cardiopulmonary arrest Do you want consulting provider notified?: Already Contacted 08/04/22 22:35 Consult Physician Routine Consulting Provider: Bobby Marte Consult Reason/Comments: pneumomediastinum Do you want consulting provider notified?: Yes 08/04/22 23:33 Consult Physician Routine Consulting Provider: [facility] Consult Reason/Comments: Post Interventional Patient Do you want consulting provider notified?: Already Contacted Primary care physician: Stated None Hospital Course: Final Diagnosis Cardiac arrest and recurrent ventricular fibrillation Acute posterior myocardial infarction status post PCI to the mid RCA Acute hypoxic respiratory failure secondary to above requiring intubation and mechanical ventilation Pneumomediastinum and pneumopericardium attributed to CPR CTA showing cerebral edema and increased intracranial pressure possibly anoxic brain injury from extended down time Acute kidney injury Elevated LFTs Patient had not been to see a doctor in over 10 years Unknown medical history Patient in the intensive care unit on 08/05/2022 at 0007. Patient was brought in found unresponsive and in asystole by EMS. Patient had ROSC and was intubated in field. In the ER a STEMI was called and patient went to the union laborer. There was an acutely occluded mid RCA which was successfully stented. Patient coded in the union laborer required ACLS protocol, defibrillation, CPR. ROSC achieved and patient was started on norepinheprhine and taken to ICU. On arrival patient was noted to be in ventricular fibrilliation and code blue called. ACLS protocol used and after 25 minutes of total down time resuscitation attempt was unsuccessful. Patient was not evaluated by admitting team secondary to the time of arrival. Please see medical chart for additional information. The impression has been dictated by Veronica Badillo Nurse Practitioner as directed. Dr. Wu MD I have performed a history of this patient, discussed the same with the dictator, and agree with the dictators assessment and plan as written, documented as a scribe. Patient was not evaluated by admitting team. Plan - Discharge Summary New Discharge Prescriptions: No Action No Known Home Medications Discharge Medication List No Known Home Medications 08/04/22 [History] Follow up Appointment(s)/Referral(s): None,Stated [Primary Care Provider] - 1 Week Discharge Disposition: - Preliminary Cause of Preliminary Cause of : cardiac arrest secondary to myocardial infarction
== END 2022-08-05 03:35 | disposition expired | DRG 246 ==
LOC: EC 20:46 → 2SICU 22:40
PROVIDERS: ADMIT Hospitalist; ATTEND Hospitalist
DX: I21.29 ST elevation (STEMI) myocardial infarction involving other sites (principal); G93.6 Cerebral edema; J96.01 Acute respiratory failure with hypoxia; J96.02 Acute respiratory failure with hypercapnia; N17.9 Acute kidney failure, unspecified; G93.1 Anoxic brain damage, not elsewhere classified; T79.7XXA Traumatic subcutaneous emphysema, initial encounter; I31.9 Disease of pericardium, unspecified; I46.2 Cardiac arrest due to underlying cardiac condition; I49.01 Ventricular fibrillation; J84.10 Pulmonary fibrosis, unspecified; R79.89 Other specified abnormal findings of blood chemistry; I25.10 Atherosclerotic heart disease of native coronary artery without angina pectoris; F17.210 Nicotine dependence, cigarettes, uncomplicated; Z91.030 Bee allergy status
CPT/HCPCS: 36415; 36600; 70450; 71045; 71275; 72125; 80053; 82805; 83735; 84484; 85025; 85610; 85730; 92950; 93005; 93458; 94002; 96374; 96375; 99291